=== PATIENT | female | born 1960 | race Hispanic/Latino ===

== ENCOUNTER 2021-03-08 13:19 | Emergency (ER) | payer SELFPAY ==
[~2021-03-08] VITALS: Ht 154.9 cm; Wt 96.2 kg
[2021-03-08] MEDS ORDERED: MORPHINE SULFATE INJ 4 MG/ML INJ 1ML IM NR (14:00)
[2021-03-08] MEDS ORDERED: MORPHINE SULFATE INJ 4 MG/ML INJ 1ML IV STA (15:12)
[2021-03-08] MEDS ORDERED: ULTRAM 50MG50 MG PO (15:56)
== END 2021-03-08 16:26 | disposition home or self-care (01) ==
LOC: FSED 13:30
DX: M79.671 Pain in right foot (principal); Y93.01 Activity, walking, marching and hiking; I10 Essential (primary) hypertension; E11.9 Type 2 diabetes mellitus without complications; E78.5 Hyperlipidemia, unspecified
CPT/HCPCS: 73630; 80053; 83880; 85025; 93971; 99284; J2270